=== PATIENT | female | born 1945 | race Caucasian/White ===

== ENCOUNTER 2022-07-02 10:42 | Outpatient (CLI) | payer OTHER | END 2022-07-02 10:53 | disposition home or self-care (01) | LOC: SONOGRAMA 10:42 | PROVIDERS: ATTEND Family Medicine | DX: Z12.31 Encounter for screening mammogram for malignant neoplasm of breast (principal); N60.19 Diffuse cystic mastopathy of unspecified breast ==

== ENCOUNTER 2023-06-22 08:50 | Outpatient (CLI) | payer OTHER | END 2023-06-22 08:55 | disposition home or self-care (01) | LOC: SONOGRAMA 08:50 | PROVIDERS: ATTEND Family Medicine | DX: M75.92 Shoulder lesion, unspecified, left shoulder (principal) ==

== ENCOUNTER 2023-10-22 09:27 | Outpatient (CLI) | payer OTHER | END 2023-10-22 09:38 | disposition home or self-care (01) | LOC: SONOGRAMA 09:27 | PROVIDERS: ATTEND Obstetrics & Gynecology Obstetrics | DX: N64.4 Mastodynia (principal) ==